=== PATIENT | male | born 1935 | race Caucasian/White ===

== ENCOUNTER → 2018-08-23 | Outpatient (CLI) | payer MEDICARE, OTHER | LOC: WOUNDCARE 08:39 | PROVIDERS: ATTEND Surgery | DX: I87.333 Chronic venous hypertension (idiopathic) with ulcer and inflammation of bilateral lower extremity (principal); I70.291 Other atherosclerosis of native arteries of extremities, right leg | CPT/HCPCS: 99203 ==

== ENCOUNTER → 2018-08-28 | Outpatient (CLI) | payer MEDICARE, OTHER | LOC: WOUNDCARE 09:43 | PROVIDERS: ATTEND Surgery | DX: R21 Rash and other nonspecific skin eruption (principal) | CPT/HCPCS: 99212 ==

== ENCOUNTER 2021-05-15 08:57 | Emergency (ER) | payer MEDICARE, OTHER ==
[~2021-05-15] VITALS: Ht 177 cm; Wt 84.0 kg
[2021-05-15 09:10] LABS: BASOPHILS % (AUTO) 1 % (0-10); EOSINOPHILS # (AUTO) 0.2 10^3/uL (0.0-0.3); EOSINOPHILS % (AUTO) 3 % (0-10); HEMATOCRIT 41 % (40-54); HEMOGLOBIN 14.1 g/dL (13.3-17.7); LYMPHOCYTES % (AUTO) 25 % (12-44); MEAN CORPUSCULAR HEMOGLOBIN 33 pg (25-34); MEAN CORPUSCULAR HGB CONC 34 g/dL (32-36); MEAN CORPUSCULAR VOLUME 96 fL (80-99); MEAN PLATELET VOLUME 9.5 fL (9.0-12.2); MONOCYTES # (AUTO) 0.9 X 10^3 (0.0-1.0); MONOCYTES % (AUTO) 12 % (0-12); NEUTROPHILS # (AUTO) 4.6 X 10^3 (1.8-7.8); NEUTROPHILS % (AUTO) 59 % (42-75); PLATELET COUNT 208 10^3/uL (130-400); WHITE BLOOD COUNT 7.8 10^3/uL (4.3-11.0)
--- NOTE | 2021-05-15 09:10 | ED Syncope ---
General Chief Complaint: Dizziness/Syncope Stated Complaint: SYNCOPAL EPISODE Source of Information: Patient, EMS, Spouse History of Present Illness Date Seen by Provider: May 15, 2021 Time Seen by Provider: 08:57 Initial Comments 85-year-old male presenting to the hospital with complaints of syncopal episode at [employer] this morning. Patient has a history of dementia and is difficult to get details of the event from him. He states that he had walked up the stairs, discharged and was doing fine but then he was sitting down and passed out. He denies having any headache, chest pain, abdominal pain, nausea, vomiting, feeling dizzy, change in vision. He reports feeling fine and not having any difficulty prior to passing out. He denies having this happen before for him. [facility] Per the he has done this in the past when he has been standing he has just passed out. He thought it was due to being dehydrated and having a low blood pressure. That has not happened since the summer when he was going for haircut at the [facility] in [place]. Location Injury Occurred: [facility] Precipitating Factors: None Loss of Consciousness: Brief (Seconds) Current Symptoms: Back to Normal Allergies and Home Medications Allergies Coded Allergies: No Known Drug Allergies (Unverified , 05/15/21) Patient Home Medication List Home Medication List Reviewed: Yes Review of Systems Constitutional: No chills, No diaphoresis, No fever EENTM: no symptoms reported Respiratory: no symptoms reported Cardiovascular: no symptoms reported Gastrointestinal: no symptoms reported Genitourinary: no symptoms reported Musculoskeletal: no symptoms reported Skin: no symptoms reported Psychiatric/Neurological: Denies Headache, Denies Numbness, Denies Paresthesia Past Sscepol-Wzqzxb-Ymnrki Hx Patient Social History Tobacco Use?: No Past Medical History Surgery/Hospitalization HX: Dementia, Hypertension Physical Exam Vital Signs Vital Signs - First Documented 05/15/21 08:57 Temp 35.7 Pulse 63 Resp 18 B/P (MAP) 157/80 (105) Pulse Ox 96 O2 Delivery Room Air Capillary Refill : Height, Weight, BMI Height: '" Weight: lbs. oz. kg; BMI Method: General Appearance: No Apparent Distress, WD/WN HEENT: PERRL/EOMI, Pharynx Normal, Moist Mucous Membranes Neck: Full Range of Motion, Normal Inspection, Non Tender, Supple Cardiovascular: Regular Rate, Rhythm, Normal Peripheral Pulses Respiratory: Chest Non Tender, Lungs Clear, Normal Breath Sounds, No Accessory Muscle Use, No Respiratory Distress Gastrointestinal: Normal Bowel Sounds, No Pulsatile Mass, Non Tender, Soft Extremities: Normal Capillary Refill, Normal Inspection, No Pedal Edema Neurologic/Psychiatric: Alert Cranial Nerves: Normal Hearing, Normal Speech, PERRL Motor/Sensory: No Motor Deficit, No Sensory Deficit Skin: Normal Color, Warm/Dry Progress/Results/Core Measures Results/Orders Lab Results Laboratory Tests Test 05/15/21 09:00 05/15/21 10:25 Range/Units White Blood Count 7.8 4.3-11.0 10^3/uL Red Blood Count 4.28 L 4.30-5.52 10^6/uL Hemoglobin 14.1 13.3-17.7 g/dL Hematocrit 41 40-54 % Mean Corpuscular Volume 96 80-99 fL Mean Corpuscular Hemoglobin 33 25-34 pg Mean Corpuscular Hemoglobin Concent 34 32-36 g/dL Red Cell Distribution Width 13.0 10.0-14.5 % Platelet Count 208 130-400 10^3/uL Mean Platelet Volume 9.5 9.0-12.2 fL Immature Granulocyte % (Auto) 0 % Neutrophils (%) (Auto) 59 42-75 % Lymphocytes (%) (Auto) 25 12-44 % Monocytes (%) (Auto) 12 0-12 % Eosinophils (%) (Auto) 3 0-10 % Basophils (%) (Auto) 1 0-10 % Neutrophils # (Auto) 4.6 1.8-7.8 X 10^3 Lymphocytes # (Auto) 2.0 1.0-4.0 X 10^3 Monocytes # (Auto) 0.9 0.0-1.0 X 10^3 Eosinophils # (Auto) 0.2 0.0-0.3 10^3/uL Basophils # (Auto) 0.0 0.0-0.1 10^3/uL Immature Granulocyte # (Auto) 0.0 0.0-0.1 10^3/uL Prothrombin Time 13.8 12.2-14.7 SEC INR Comment 1.0 0.8-1.4 Activated Partial Thromboplast Time 28 24-35 SEC Sodium Level 138 135-145 MMOL/L Potassium Level 3.5 L 3.6-5.0 MMOL/L Chloride Level 102 98-107 MMOL/L Carbon Dioxide Level 26 21-32 MMOL/L Anion Gap 10 5-14 MMOL/L Blood Urea Nitrogen 13 7-18 MG/DL Creatinine 1.03 0.60-1.30 MG/DL Estimat Glomerular Filtration Rate 69 BUN/Creatinine Ratio 13 Glucose Level 95 70-105 MG/DL Calcium Level 8.8 8.5-10.1 MG/DL Corrected Calcium 9.0 8.5-10.1 MG/DL Magnesium Level 1.9 1.6-2.4 MG/DL Total Bilirubin 0.5 0.1-1.0 MG/DL Aspartate Amino Transf (AST/SGOT) 16 5-34 U/L Alanine Aminotransferase (ALT/SGPT) 12 0-55 U/L Alkaline Phosphatase 89 40-136 U/L Troponin I < 0.30 <0.30 NG/ML Pro-B-Type Natriuretic Peptide 323.8 H <75.0 PG/ML Total Protein 6.5 6.4-8.2 GM/DL Albumin 3.7 3.2-4.5 GM/DL Urine Color YELLOW Urine Clarity CLEAR Urine pH 6.5 5-9 Urine Specific [place] 1.015 L 1.016-1.022 Urine Protein NEGATIVE NEGATIVE Urine Glucose (UA) NEGATIVE NEGATIVE Urine Ketones NEGATIVE NEGATIVE Urine Nitrite NEGATIVE NEGATIVE Urine Bilirubin NEGATIVE NEGATIVE Urine Urobilinogen 0.2 < = 1.0 MG/DL Urine Leukocyte Esterase NEGATIVE NEGATIVE Urine RBC (Auto) NEGATIVE NEGATIVE Urine RBC NONE /HPF Urine WBC RARE /HPF Urine Squamous Epithelial Cells 5-10 /HPF Urine Crystals NONE /LPF Urine Bacteria TRACE /HPF Urine Casts NONE /LPF Urine Mucus NEGATIVE /LPF Urine Culture Indicated NO My Orders Orders - JOHNNIE HECK MD Cbc With Automated Diff (05/15/21 09:03) Magnesium (05/15/21 09:03) Chest 1 View Ap/Pa Only (05/15/21 09:03) Ekg Tracing (05/15/21 09:03) Comprehensive Metabolic Panel (05/15/21 09:03) Protime With Inr (05/15/21 09:03) Partial Thromboplastin Time (05/15/21 09:03) O2 (05/15/21 09:03) Monitor-Rhythm Ecg Trace Only (05/15/21 09:03) Ed Iv/Invasive Line Start (05/15/21 09:03) Troponin I Fs (05/15/21 09:03) Probnp Fs (05/15/21 09:03) Ua Culture If Indicated (05/15/21 09:03) Ct Head Wo (05/15/21 09:03) Orthostatic Vital Signs (Adult (05/15/21 09:34) Vital Signs/I&O 05/15/21 05/15/21 05/15/21 08:57 09:42 10:52 Temp 35.7 35.7 Pulse 63 54 65 58 65 Resp 18 18 B/P (MAP) 157/80 (105) 145/73 (97) 147/92 142/68 (92) 147/92 (110) Pulse Ox 96 96 O2 Delivery Room Air Room Air Progress Progress Note #1: Progress Note Obtain basic labs as well as urinalysis. CT of his head to look for acute intracranial abnormality, stroke, mass, tumor. Chest x-ray to evaluate for pneumonia, effusion, cardiac or pulmonary abnormality. Electrocardiogram to evaluate for cardiac arrhythmia. Placed on cardiac telemetry monitoring and to watch his heart rate and rhythm. Give IV fluids for hydration. Will finish the liter of normal saline from EMS. Obtain orthostatic vital signs Progress Note #2: Progress Note Labs all appear stable without acute significant normality. His cardiac enzymes are negative for acute coronary syndrome or heart attack. His CT head does not show any acute process but does show changes consistent with age and dementia. His chest x-ray was clear without acute process. His electrocardiogram shows sinus rhythm without ectopy or ischemia. After a liter of fluid the patient was finally able to give a very small amount of urine. Progress Note #3: Progress Note UA clear of infection but his specific gravity was a little elevated still at 1.015 despite having just had a Liter of NS. Encouraged to drink more water and stay well-hydrated. Follow-up through the clinic for continued concerns. Initial ECG Impression Date: May 15, 2021 Initial ECG Impression Time: 09:27 Initial ECG Rate: 57 Initial ECG Rhythm: Normal Sinus Initial ECG Comparisson: No Previous ECG Available Comment Normal sinus rhythm with a heart rate of 57 bpm. Right bundle branch block. OR interval 169 ms. QT interval 461 ms with a QTc interval 449 ms. There is no acute ST elevation. There is no prior tracing available for comparison. Diagnostic Imaging Diagonstic Imaging: CT Plain Films/CT/US/NM/MRI: head Comments NAME: [facility] REC#: [id number] PT STATUS: REG ER : 1935 PHYSICIAN: JOHNNIE HECK MD ADMIT DATE: 05/15/21/ER FS Draft Date of Exam:05/15/21 CT HEAD WO PROCEDURE: CT head without contrast. TECHNIQUE: Multiple contiguous axial images were obtained through the brain without the use of intravenous contrast. Auto Exposure Controls were utilized during the CT exam to meet ALARA standards for radiation dose reduction. INDICATION: Syncopal episode. No prior studies are available for comparison. The ventricles and sulci are prominent consistent with cerebral atrophy. No sulcal effacement is seen. There is no midline shift. No acute intra-axial or extra-axial hemorrhage is detected. Cisterns are patent. Visualized paranasal sinuses are clear. IMPRESSION: Senescent changes. No acute intracranial process is identified. Dictated on workstation # [id number] Dict: 05/15/21939 Trans: 05/15/2144 [facility] [id number] Interpreted by: RENAE PELLETIER MD Electronically signed by: Reviewed: Reviewed by Az Diagonstic Imaging: Xray Plain Films/CT/US/NM/MRI: chest Comments [facility]. [place], [place] NAME: [facility] REC#: [id number] PT STATUS: REG ER : 1935 PHYSICIAN: JOHNNIE HECK MD ADMIT DATE: 05/15/21/ER FS Draft Date of Exam:05/15/21 CHEST 1 VIEW AP/PA ONLY Indication: Syncopal episode. TIME OF EXAM: 9:27 AM No prior studies available for comparison. A right convexity thoracic scoliotic curvature is noted. Heart size normal. Lungs are clear of acute infiltrates. There is no effusion or pneumothorax. There is some minimal scarring in the left base. IMPRESSION: No acute cardiopulmonary process is detected. Dictated on workstation # [id number] Dict: 05/15/2141 Trans: 05/15/2145 [facility] [id number] Interpreted by: RENAE PELLETIER MD Electronically signed by: Reviewed: Reviewed by Me Departure Impression Primary Impression: Vasovagal syncopes Additional Impression: Dehydration Disposition: 01 HOME, SELF-CARE Condition: Stable Departure-Patient Inst. Decision time for Depature: 10:51 Referrals: MAURI APARICIO MD (PCP) Primary Care Physician Patient Instructions: Fainting, Adult ED, Dehydration, Adult ED, Why Water Is Important to Health Add. Discharge Instructions: Make sure to drink more water and stay well-hydrated. Slowly change positions and take a moment to allow your body to adjust as you change positions. Check back with clinic for continued concerns or more problems. All discharge instructions reviewed with patient and/or family. Voiced understanding. JOHNNIE HECK MD May 15, 2021 09:10
[2021-05-15 09:29] LABS: BILIRUBIN,TOTAL 0.5 MG/DL (0.1-1.0); CALCIUM 8.8 MG/DL (8.5-10.1); CREATININE SERUM 1.03 MG/DL (0.60-1.30); MAGNESIUM 1.9 MG/DL (1.6-2.4); POTASSIUM 3.5 MMOL/L (3.6-5.0); PROTHROMBIN TIME PATIENT 13.8 SEC (12.2-14.7)
[2021-05-15 09:30] LABS: ALBUMIN 3.7 GM/DL (3.2-4.5); TOTAL PROTEIN 6.5 GM/DL (6.4-8.2)
[2021-05-15 09:42] VITALS: BP_SYST 142; BP_SYST 145; BP_SYST 147; BP_DIAS 68; BP_DIAS 73; BP_DIAS 92
--- NOTE | 2021-05-15 09:44 | Diagnostic Imaging Report ---
PROCEDURE: CT head without contrast. TECHNIQUE: Multiple contiguous axial images were obtained through the brain without the use of intravenous contrast. Auto Exposure Controls were utilized during the CT exam to meet ALARA standards for radiation dose reduction. INDICATION: Syncopal episode. No prior studies are available for comparison. The ventricles and sulci are prominent consistent with cerebral atrophy. No sulcal effacement is seen. There is no midline shift. No acute intra-axial or extra-axial hemorrhage is detected. Cisterns are patent. Visualized paranasal sinuses are clear. IMPRESSION: Senescent changes. No acute intracranial process is identified. Dictated by: Dictated on workstation # [id number]
--- NOTE | 2021-05-15 09:45 | Diagnostic Imaging Report ---
Indication: Syncopal episode. TIME OF EXAM: 9:27 AM No prior studies available for comparison. A right convexity thoracic scoliotic curvature is noted. Heart size normal. Lungs are clear of acute infiltrates. There is no effusion or pneumothorax. There is some minimal scarring in the left base. IMPRESSION: No acute cardiopulmonary process is detected. Dictated by: Dictated on workstation # [id number]
[2021-05-15 10:44] LABS: BACTERIA,URINE TRACE /HPF; BILIRUBIN,URINE NEGATIVE (NEGATIVE); CLARITY,URINE CLEAR; COLOR,URINE YELLOW; GLUCOSE, URINE (UA) NEGATIVE (NEGATIVE); KETONES,URINE NEGATIVE (NEGATIVE); LEUKOCYTE ESTERASE ,URINE NEGATIVE (NEGATIVE); NITRITE,URINE NEGATIVE (NEGATIVE); PH,URINE 6.5 (5-9); PROTEIN,URINE NEGATIVE (NEGATIVE); WBC,URINE RARE /HPF
[2021-05-15 10:52] VITALS: BP 147/92
== END 2021-05-15 10:53 | disposition home or self-care (01) ==
LOC: EDUNIT# 08:57 → ER FS 08:58
DX: R55 Syncope and collapse (principal); E86.0 Dehydration; I10 Essential (primary) hypertension; F03.90 Unspecified dementia, unspecified severity, without behavioral disturbance, psychotic disturbance, mood disturbance, and anxiety
CPT/HCPCS: 36415; 70450; 71045; 80053; 81000; 83735; 83880; 84484; 85025; 85610; 85730; 93005; 93041

== ENCOUNTER 2023-03-31 06:01 | Emergency (ER) | payer MEDICARE, OTHER ==
[~2023-03-31] VITALS: Ht 175 cm; Wt 80.0 kg
--- NOTE | 2023-03-31 06:29 | ED Fall/Injury ---
General Chief Complaint: Trauma-Non Activation Stated Complaint: FALL Nursing Triage Note: Patient to ER via [facility] c/o right & left shoulder and back pain. Patient fell trying to get to the bathroom this AM approx 10min prior to [facility] arrival. denies hitting head. hx of dementia. Source: patient, family Exam Limitations: other (Dementia) (BRADLEY YEN DO) History of Present Illness Date Seen by Provider: Mar 31, 2023 Time Seen by Provider: 06:15 Initial Comments This is an 87-year-old male with history of dementia who is brought by EMS secondary to a fall this morning. Patient is accompanied by his children and his showed up a little bit later. Patient reportedly was getting out of bed and fell. He reportedly did not strike his head, although I question this given the patient's age and physical stature. He complains of pain all the way up and down his spine and left shoulder pain and pain underneath the left should er as well. He has no shortness of breath. No medications were given prior to arrival. His pain is worse with movement or palpation. Location Injury Occurred: home (BRADLEY YEN DO) Allergies and Home Medications Allergies Coded Allergies: No Known Drug Allergies (Unverified , 05/15/21) Patient Home Medication List Home Medication List Reviewed: Yes (BRADLEY YEN DO) Review of Systems Review of Systems Constitutional: see HPI (All other systems negative except as documented in HPI.) (BRADLEY YEN DO) Past Uawcvse-Mbfukw-Katkac Hx Patient Social History Tobacco Use?: No Substance use?: No Alcohol Use?: No (BRADLEY YEN DO) Past Medical History Surgery/Hospitalization HX: Dementia, Hypertension (BRADLEY YEN DO) Physical Exam Vital Signs Vital Signs - First Documented 03/31/23 06:05 Temp 36.7 Pulse 94 Resp 16 B/P (MAP) 172/97 (122) Pulse Ox 90 O2 Delivery Room Air (ROGELIO ROJAS MD) Vital Signs Capillary Refill : Less Than 3 Seconds (BRADLEY YEN DO) Height, Weight, BMI Height: '" Weight: lbs. oz. kg; BMI Method: General Appearance: WD/WN, no apparent distress HEENT: PERRL/EOMI, normal ENT inspection, TMs normal, pharynx normal Neck: non-tender, full range of motion, supple, normal inspection Cardiovascular: normal peripheral pulses, regular rate, rhythm, no edema, no gallop, no JVD, no murmur Respiratory: chest non-tender, lungs clear, normal breath sounds, no respiratory distress, no accessory muscle use Peripheral Pulses: 0 Carotid (R); 2+ Carotid (R); 0 Carotid (L); 2+ Carotid (L); 0 Femoral (R); 2+ Femoral (R); 0 Femoral (L); 2+ Femoral (L); 0 Dorsalis Pedis (R); 2+ Dorsalis Pedis (R), 2+ Left Dors-Pedis (L), 2+ Radial Pulses (R), 2+ Radial Pulses (L) Gastrointestinal: normal bowel sounds, non tender, soft, no organomegaly, no pulsatile mass Rectal: normal exam, normal rectal tone, heme negative stool, deferred, black stool, blood streaked stool, decreased tone Pelvic: normal external exam, normal adnexa, no cerv. 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 Differential includes contusions versus fractures and would like to rule out intracranial hemorrhage. Will obtain imaging of the cer vical, thoracic, lumbar spines, x-ray left shoulder and left ribs, CT head. Patient currently stable and pain is controlled without movement. Patient care will be transitioned to Dr. Rojas at 0700. (YOVANA,BRADLEY T DO) Progress Note : Progress Note Patient signed out to me by night physician for follow-up of imaging. CT head and C-spine is normal without any fractures or dislocation. X-rays of shoulder and ribs are normal as well. Toradol injection given for pain in the ER. Advised Lidoderm patches and ibuprofen or Tylenol for pain as needed. Advised patient to use walker. Follow-up with PCP within the next 7 days. (ROGELIO ROJAS MD) Diagnostic Imaging Diagonstic Imaging: Xray, CT Plain Films/CT/US/NM/MRI: chest, c-spine, head, other Comments [facility] [place] NAME: [facility] RO[facility] REC#: [id number] PT STATUS: REG ER : 1935 PHYSICIAN: BRADLEY YEN DO ADMIT DATE: 03/31/23/ER FS Draft Date of Exam:03/31/23 CT THORACIC/LUMBAR SPINE WO PROCEDURE: CT thoracic and lumbar spine without contrast. TECHNIQUE: Multiple contiguous axial images were obtained through the thoracic and lumbar spine without the use of intravenous contrast. Sagittal and coronal reformations were then performed. All CT scans use one or more of the following dose optimizing techniques: automated exposure control, MA and/or KvP adjustment based on a patient size and exam type, or iterative reconstruction. INDICATION: Pain T-spine: There is rightward convexity thoracic scoliotic curvature. No segmentation anomaly or dysraphism. No fracture or paraspinal hemorrhage. The lumbar spine shows leftward convexity scoliotic curvature also idiopathic. There is mild L1 superior and inferior endplate concavity without lucent fracture component or paraspinal hemorrhage. This is likely chronic. There are severe degenerative changes greatest at L2-L3 and L3-L4 where there is chronic canal and biforaminal stenosis. No paraspinal hemorrhage. No traumatic malalignment. No acute appearing fracture line. Impression: Reciprocal thoracolumbar scoliosis, spondylosis, likely old mild L1 endplate compressions. No acute appearing fracture or paraspinal hemorrhage and no traumatic appearing malalignment. Dictated on workstation # [id number] Dict: 03/31/23 0738 Trans: 03/31/23 0803 [facility] [id number] Interpreted by: FLORENCE QUIROZ Electronically signed by: [facility]. [place], [place] NAME: EST[facility]PH[facility] RO[facility] REC#: [id number] PT STATUS: REG ER : 1935 PHYSICIAN: BRADLEY YEN DO ADMIT DATE: 03/31/23/ER FS Draft Date of Exam:03/31/23 CT HEAD/CERVICAL SPINE WO PROCEDURE: CT head and CT cervical spine without contrast. TECHNIQUE: Multiple contiguous axial images were obtained through the brain and cervical spine without the use of intravenous contrast. Sagittal and coronal reformations through the cervical spine were then performed. Auto Exposure Controls were utilized during the CT exam to meet ALARA standards for radiation dose reduction. INDICATION: Fall, pain. Compared with head CT 05/15/2021. Head: Cerebral cortical atrophy is chronic finding. No acute or suspicious extra-axial fluid collection. Ventricular calibers are congruent with the degree of sulcation. There is no teresa hydrocephalus. No calvarial fracture deformity. No hemo-sinus. No pneumocephalus. No cerebral edema. No evidence for elevated pressures. There has been no change. CT cervical spine: Cervical stature is normal. The alignment anatomic. No fracture. No paraspinal hemorrhage. There is some chronic degenerative changes with no acute appearing abnormality. IMPRESSION: CT head: Stable chronic senescent findings. No hemorrhage, fracture, edema or acute pathology. CT cervical spine: Degenerative changes without fracture or traumatic malalignment. Dictated on workstation # [id number] Dict: 03/31/23 0734 Trans: 03/31/[address] [place] [address] [id number] Interpreted by: FLORENCE QUIROZ Electronically signed by: [facility]. [place], [place] NAME: [facility] RO[facility] REC#: [id number] PT STATUS: REG ER : 1935 PHYSICIAN: BRADLEY YEN DO ADMIT DATE: 03/31/23/ER FS Draft Date of Exam:03/31/23 RIBS 2-3 VIEW LEFT INDICATION: Pain There is reciprocal S type thoracolumbar scoliotic curvature. Some left basilar infiltrate or atelectasis. No rib fracture deformity or acute injury identified. IMPRESSION: No rib fracture identified. Dictated on workstation # [id number] Dict: 03/31/23736 Trans: 03/31/23749 OMAR [id number] Interpreted by: FLORENCE QUIROZ Electronically signed by: [facility] [place] NAME: [facility] RO[facility] REC#: [id number] PT STATUS: REG ER : 1935 PHYSICIAN: BRADLEY YEN DO ADMIT DATE: 03/31/23/ER FS Draft Date of Exam:03/31/23 SHOULDER 2 VIEW LEFT INDICATION: Fall, pain FINDINGS: 2 view shoulder showed no fracture or dislocation. Impression: No acute appearing abnormality. Dictated on workstation # [id number] Dict: 03/31/2337 Trans: 03/31/23749 OMAR [id number] Interpreted by: FLORENCE QUIROZ Electronically signed by: (ROGELIO ROJAS MD) Transfer of Care Time: 07:00 Care transferred to: Dr. Rojas (BRADLEY YEN DO) Departure Impression Primary Impression: Fall Additional Impressions: Muscle strain Left shoulder strain Disposition: 01 HOME, SELF-CARE Condition: Stable Departure-Patient Inst. Referrals: MAURI APARICIO MD (PCP/Family) Primary Care Physician Patient Instructions: Preventing Falls ED, Shoulder Pain ED, Going Up and Down Curbs or Stairs With a Walker or Crutches, Muscle Strain (DC) Add. Discharge Instructions: Advised Lidoderm patches and ibuprofen or Tylenol for pain as needed. Advised patient to use walker. Follow-up with PCP within the next 7 days. All discharge instructions reviewed with patient and/or family. Voiced understanding. BRADLEY YEN DO Mar 31, 2023 06:29 ROGELIO ROJAS MD Mar 31, 2023 08:15
--- NOTE | 2023-03-31 07:51 | Diagnostic Imaging Report ---
INDICATION: Pain There is reciprocal S type thoracolumbar scoliotic curvature. Some left basilar infiltrate or atelectasis. No rib fracture deformity or acute injury identified. IMPRESSION: No rib fracture identified. Dictated by: Dictated on workstation # [id number]
--- NOTE | 2023-03-31 07:51 | Diagnostic Imaging Report ---
INDICATION: Fall, pain FINDINGS: 2 view shoulder showed no fracture or dislocation. Impression: No acute appearing abnormality. Dictated by: Dictated on workstation # [id number]
--- NOTE | 2023-03-31 08:04 | Diagnostic Imaging Report ---
PROCEDURE: CT head and CT cervical spine without contrast. TECHNIQUE: Multiple contiguous axial images were obtained through the brain and cervical spine without the use of intravenous contrast. Sagittal and coronal reformations through the cervical spine were then performed. Auto Exposure Controls were utilized during the CT exam to meet ALARA standards for radiation dose reduction. INDICATION: Fall, pain. Compared with head CT 05/15/2021. Head: Cerebral cortical atrophy is chronic finding. No acute or suspicious extra-axial fluid collection. Ventricular calibers are congruent with the degree of sulcation. There is no teresa hydrocephalus. No calvarial fracture deformity. No hemo-sinus. No pneumocephalus. No cerebral edema. No evidence for elevated pressures. There has been no change. CT cervical spine: Cervical stature is normal. The alignment anatomic. No fracture. No paraspinal hemorrhage. There is some chronic degenerative changes with no acute appearing abnormality. IMPRESSION: CT head: Stable chronic senescent findings. No hemorrhage, fracture, edema or acute pathology. CT cervical spine: Degenerative changes without fracture or traumatic malalignment. Dictated by: Dictated on workstation # [id number]
--- NOTE | 2023-03-31 08:04 | Diagnostic Imaging Report ---
PROCEDURE: CT thoracic and lumbar spine without contrast. TECHNIQUE: Multiple contiguous axial images were obtained through the thoracic and lumbar spine without the use of intravenous contrast. Sagittal and coronal reformations were then performed. All CT scans use one or more of the following dose optimizing techniques: automated exposure control, MA and/or KvP adjustment based on a patient size and exam type, or iterative reconstruction. INDICATION: Pain T-spine: There is rightward convexity thoracic scoliotic curvature. No segmentation anomaly or dysraphism. No fracture or paraspinal hemorrhage. The lumbar spine shows leftward convexity scoliotic curvature also idiopathic. There is mild L1 superior and inferior endplate concavity without lucent fracture component or paraspinal hemorrhage. This is likely chronic. There are severe degenerative changes greatest at L2-L3 and L3-L4 where there is chronic canal and biforaminal stenosis. No paraspinal hemorrhage. No traumatic malalignment. No acute appearing fracture line. Impression: Reciprocal thoracolumbar scoliosis, spondylosis, likely old mild L1 endplate compressions. No acute appearing fracture or paraspinal hemorrhage and no traumatic appearing malalignment. Dictated by: Dictated on workstation # [id number]
[2023-03-31] MEDS ORDERED: KETOROLAC INJ 30 MG/ML VIAL IM ONE (08:30)
[2023-03-31 08:35] VITALS: BP 172/97
[2023-03-31] MEDS ORDERED: KETOROLAC INJ 30 MG/ML VIAL ONE (08:37)
== END 2023-03-31 08:50 | disposition home or self-care (01) ==
LOC: EDUNIT# 06:01 → ER FS 06:02
DX: S46.912A Strain of unspecified muscle, fascia and tendon at shoulder and upper arm level, left arm, initial encounter (principal); W18.30XA Fall on same level, unspecified, initial encounter
CPT/HCPCS: 70450; 71100; 72125; 72128; 72131; 73030; 96372

== ENCOUNTER 2023-03-31 14:29 | Inpatient (IN) | payer MEDICARE, OTHER ==
[~2023-03-31] VITALS: Ht 175 cm; Wt 87.1 kg
--- NOTE | 2023-03-31 14:57 | ED General ---
General Chief Complaint: Trauma-Non Activation Stated Complaint: MULTIPLE INJURIES Nursing Triage Note: PT TO 02 VIA WHEELCHAIR CC OF FALL THIS AM AND WEEK AGO. PT UNABLE TO BEAR WEIGHT. Source of Information: Patient Exam Limitations: No Limitations History of Present Illness Date Seen by Provider: Mar 31, 2023 Time Seen by Provider: 14:42 Initial Comments Here with report of too weak to walk. Apparently had fall this morning and was seen at [facility] and had CT of the head, C-spine, thoracic spine, lumbar spine as well as left shoulder and left ribs. All of that apparently was okay. He was discharged from there but is unable to even stand up without two-person assistance and that is not normal for him. He is here with his and son. He lives with his who states that she is not inability care for him in this state and this is not his usual state. Does have history of dementia and is really only on a few medicines and mostly related to dementia. CT scan from [facility] ED results reviewed and shows no acute intracranial hemorrhage and no fractures acutely for any of the spine. Denies nausea, vomiting or diarrhea. Does complain of left arm pain and left upper back pain. Timing/Duration: 4-6 Hours Severity: Moderate Associated Systoms: No Chest Pain, No Fever/Chills, No Nausea/Vomiting, No Shortness of Air; Weakness Allergies and Home Medications Allergies Coded Allergies: No Known Drug Allergies (Unverified , 05/15/21) Patient Home Medication List Home Medication List Reviewed: Yes Review of Systems Review of Systems Constitutional: see HPI; No chills, No fever EENTM: No nose congestion, No throat pain Respiratory: No cough, No short of breath Cardiovascular: chest pain, edema Gastrointestinal: nausea, vomiting Genitourinary: no symptoms reported Musculoskeletal: No back pain; joint pain, muscle weakness Skin: no symptoms reported Psychiatric/Neurological: Weakness Past Qpydojo-Bldvhg-Dyeoro Hx Patient Social History Tobacco Use?: No Substance use?: No Alcohol Use?: No Pt feels they are or have been: No Past Medical History Surgery/Hospitalization HX: PINS IN FEET. DEMENTIA Cardiac: No Neurological: Yes Dementia Genitourinary: No Physical Exam Vital Signs Vital Signs - First Documented 03/31/23 14:37 Temp 37.8 Pulse 92 Resp 20 B/P (MAP) 167/94 (118) Pulse Ox 93 O2 Delivery Room Air Capillary Refill : Height, Weight, BMI Height: '" Weight: lbs. oz. kg; 26.00 BMI Method: General Appearance: No Apparent Distress, WD/WN HEENT: PERRL/EOMI, Pharynx Normal Neck: Non Tender, Supple Respiratory: Lungs Clear, Normal Breath Sounds Cardiovascular: Regular Rate, Rhythm, No Murmur Gastrointestinal: Non Tender, Soft Back: No CVA Tenderness, No Vertebral Tenderness, Other (Complains of left upper back pain and shoulder pain on palpation) Extremity: Pedal Edema (2+ bilateral up to the knee), Pelvis Stable, Other (Pain to the left shoulder) Skin: Normal Color, Warm/Dry Progress/Results/Core Measures Suspected Sepsis SIRS Temperature: Pulse: 92 Respiratory Rate: 20 Laboratory Tests 03/31/23 14:53: White Blood Count 9.5 Blood Pressure 167 /94 Mean: 118 Laboratory Tests 03/31/23 14:53: Creatinine 1.05, Platelet Count 181, Total Bilirubin 0.8 Results/Orders Lab Results Laboratory Tests Test 03/31/23 14:53 03/31/23 15:49 03/31/23 15:52 Range/Units White Blood Count 9.5 4.3-11.0 10^3/uL Red Blood Count 3.98 L 4.30-5.52 10^6/uL Hemoglobin 13.3 13.3-17.7 g/dL Hematocrit 39 L 40-54 % Mean Corpuscular Volume 98 80-99 fL Mean Corpuscular Hemoglobin 33 25-34 pg Mean Corpuscular Hemoglobin Concent 34 32-36 g/dL Red Cell Distribution Width 12.5 10.0-14.5 % Platelet Count 181 130-400 10^3/uL Mean Platelet Volume 9.4 9.0-12.2 fL Immature Granulocyte % (Auto) 1 % Neutrophils (%) (Auto) 84 H 42-75 % Lymphocytes (%) (Auto) 6 L 12-44 % Monocytes (%) (Auto) 9 0-12 % Eosinophils (%) (Auto) 0 0-10 % Basophils (%) (Auto) 0 0-10 % Neutrophils # (Auto) 7.9 H 1.8-7.8 10^3/uL Lymphocytes # (Auto) 0.6 L 1.0-4.0 10^3/uL Monocytes # (Auto) 0.8 0.0-1.0 10^3/uL Eosinophils # (Auto) 0.0 0.0-0.3 10^3/uL Basophils # (Auto) 0.0 0.0-0.1 10^3/uL Immature Granulocyte # (Auto) 0.1 0.0-0.1 10^3/uL Neutrophils % (Manual) 85 % Lymphocytes % (Manual) 10 % Monocytes % (Manual) 5 % Blood Morphology Comment NORMAL Sodium Level 134 L 135-145 MMOL/L Potassium Level 3.6 3.6-5.0 MMOL/L Chloride Level 101 98-107 MMOL/L Carbon Dioxide Level 19 L 21-32 MMOL/L Anion Gap 14 5-14 MMOL/L Blood Urea Nitrogen 11 7-18 MG/DL Creatinine 1.05 0.60-1.30 MG/DL Estimat Glomerular Filtration Rate 69 BUN/Creatinine Ratio 10 Glucose Level 168 H 70-105 MG/DL Calcium Level 8.5 8.5-10.1 MG/DL Corrected Calcium 8.9 8.5-10.1 MG/DL Magnesium Level 1.9 1.6-2.4 MG/DL Total Bilirubin 0.8 0.1-1.0 MG/DL Aspartate Amino Transf (AST/SGOT) 30 5-34 U/L Alanine Aminotransferase (ALT/SGPT) 22 0-55 U/L Alkaline Phosphatase 85 40-136 U/L Troponin I < 0.028 <0.028 NG/ML C-Reactive Protein High Sensitivity 2.24 H 0.00-0.50 MG/DL B-Type Natriuretic Peptide 63.3 <100.0 PG/ML Total Protein 6.2 L 6.4-8.2 GM/DL Albumin 3.5 3.2-4.5 GM/DL Influenza Type A (RT-PCR) Not Detected Not Detecte Influenza Type B (RT-PCR) Not Detected Not Detecte SARS-CoV-2 RNA (RT-PCR) Not Detected Not Detecte Urine Color YELLOW Urine Clarity CLEAR Urine pH 5.5 5-9 Urine Specific [place] 1.015 L 1.016-1.022 Urine Protein 1+ H NEGATIVE Urine Glucose (UA) NEGATIVE NEGATIVE Urine Ketones TRACE H NEGATIVE Urine Nitrite NEGATIVE NEGATIVE Urine Bilirubin 1+ H NEGATIVE Urine Urobilinogen 0.2 < = 1.0 MG/DL Urine Leukocyte Esterase NEGATIVE NEGATIVE Urine RBC (Auto) TRACE H NEGATIVE Urine RBC 2-5 H /HPF Urine WBC 0-2 /HPF Urine Squamous Epithelial Cells RARE /HPF Urine Crystals NONE /LPF Urine Bacteria TRACE /HPF Urine Casts PRESENT /LPF Urine Hyaline Casts 2-5 H /LPF Urine Mucus NEGATIVE /LPF Urine Culture Indicated NO My Orders Orders - EVANGELIST LAWRENCE MD Ed Iv/Invasive Line Start (03/31/23 14:48) Ekg Tracing (03/31/23 14:48) Monitor-Rhythm Ecg Trace Only (03/31/23 14:48) Cbc And Automated Diff (03/31/23 14:48) Comprehensive Metabolic Panel (03/31/23 14:48) Hs C Reactive Protein (03/31/23 14:48) Magnesium (03/31/23 14:48) Troponin I Roberto (03/31/23 14:48) Ua Culture If Indicated (03/31/23 14:48) Ns Iv 500 Ml (Ns Iv 500 Ml) (03/31/23 15:00) Chest 1 View, Ap/Pa Only (03/31/23 14:51) Bnp [place] (03/31/23 15:00) Manual Differential (03/31/23 14:53) Influenza A And B By Pcr (03/31/23 15:47) Covid 19 Inhouse Test (03/31/23 15:47) Fentanyl Injection (Fentanyl Injection (03/31/23 15:58) Medications Given in ED Current Medications Medications Dose Ordered Sig/Melisa Route Start Time Stop Time Status Last Admin Dose Admin Sodium Chloride 500 ml @ 0 mls/hr Q0M ONCE IV 03/31/23 15:00 03/31/23 15:01 DC 03/31/23 15:01 999 MLS/HR Vital Signs/I&O 03/31/23 14:37 Temp 37.8 Pulse 92 Resp 20 B/P (MAP) 167/94 (118) Pulse Ox 93 O2 Delivery Room Air Capillary Refill : Blood Pressure Mean: 118 Progress Note : Progress Note Seen and evaluated. IV, labs including CBC, CMP, CRP, troponin and BNP ordered. We will get chest x-ray and EKG. I did review CT and x-ray results from [facility] done earlier today. We will give normal saline 500 mL bolus. Monitor patient. Differential diagnosis includes cardiac event, blood dyscrasia, electrolyte abnormality, dehydration, advancing dementia 1558: I have ordered fentanyl 25 mcg IV for pain and we have added COVID-19 test as well as influenza. Labs reviewed and CBC shows normal white count with normal hemoglobin without left shift. CMP shows grossly normal electrolytes with slightly elevated glucose and negative troponin. CRP is minimally elevated at 2.24 with BNP being normal. UA shows 1+ protein and 2-5 RBCs and 0-2 whites with trace bacteria and rare squames. 1645: COVID and influenza are negative. I have discussed the case with the family medicine chair on-call, Dr. Hinton, and discussed the current case. Patient is very weak on standing and unable to really support himself well. He lives at home along with his who is very concerned about his ability to function at home. Patient does have dementia. He has had a few falls there is the persistent weakness. This may be medication related, dehydration or sequela of his advancing age. Ultimately we have decided for admission, observation status with consideration for inpatient rehab. I did discuss with the family that he would not be able to stay persistently for weakness and that if he did not qualify for inpatient rehab and over did not get better that there would be consideration for retirement placement which is the family was okay with. Patient has requested DNR status which was ordered. Admit, observation status. Patient and family agree to plan. Diagnostic Imaging Diagonstic Imaging: Xray Plain Films/CT/US/NM/MRI: chest Comments [facility]. [place], [place] NAME: ESTEPHANIA RO[facility] REC#: [id number] PT STATUS: REG ER : 1935 PHYSICIAN: EVANGELIST LAWRENCE MD ADMIT DATE: 03/31/23/ER Draft Date of Exam:03/31/23 CHEST 1 VIEW, AP/PA ONLY INDICATION: Weakness. COMPARISON: 05/15/2021. FINDINGS: Cardiac silhouette is enlarged. There is obscuration of left hemidiaphragm which may reflect left base atelectasis or pneumonia. Small left effusion cannot be excluded. Right lung appears clear. There is no pneumothorax. IMPRESSION: 1. Obscuration left hemidiaphragm suggesting left basilar atelectasis or pneumonia with possible left effusion. The right lung appears clear. 2. Enlarged cardiac silhouette without current radiographic evidence of edema or failure. Dictated on workstation # [id number] Dict: 03/31/23 1553 Trans: 03/31/23 1558 [id number] Interpreted by: GLENN MAO MD Electronically signed by: Departure Communication (Admissions) Time/Spoke to Admitting Phy: 16:45 Impression Primary Impression: Recurrent falls Additional Impressions: Generalized weakness Dementia Qualified Codes: F03.B0 - Unspecified dementia, moderate, without behavioral disturbance, psychotic disturbance, mood disturbance, and anxiety Disposition: ADMITTED INPATIENT Condition: Stable Admissions Decision to Admit Reason: Admit from ER (General) Decision to Admit/Date: Mar 31, 2023 Time/Decision to Admit Time: 16:45 Departure-Patient Inst. Referrals: MAURI APARICIO MD (PCP/Family) Primary Care Physician EVANGELIST LAWRENCE MD Mar 31, 2023 14:57
[2023-03-31] MEDS ORDERED: NS IV 500 ML 500 ML IV ONE (15:00)
[2023-03-31 15:01] LABS: BASOPHILS % (AUTO) 0 % (0-10); EOSINOPHILS % (AUTO) 0 % (0-10); HEMATOCRIT 39 % (40-54); HEMOGLOBIN 13.3 g/dL (13.3-17.7); LYMPHOCYTES # (AUTO) 0.6 10^3/uL (1.0-4.0); LYMPHOCYTES % (AUTO) 6 % (12-44); MEAN CORPUSCULAR HEMOGLOBIN 33 pg (25-34); MEAN CORPUSCULAR HGB CONC 34 g/dL (32-36); MEAN CORPUSCULAR VOLUME 98 fL (80-99); MEAN PLATELET VOLUME 9.4 fL (9.0-12.2); MONOCYTES # (AUTO) 0.8 10^3/uL (0.0-1.0); MONOCYTES % (AUTO) 9 % (0-12); NEUTROPHILS # (AUTO) 7.9 10^3/uL (1.8-7.8); NEUTROPHILS % (AUTO) 84 % (42-75); PLATELET COUNT 181 10^3/uL (130-400); WHITE BLOOD COUNT 9.5 10^3/uL (4.3-11.0)
[2023-03-31 15:10] LABS: ALBUMIN 3.5 GM/DL (3.2-4.5); CHLORIDE 101 MMOL/L (98-107); POTASSIUM 3.6 MMOL/L (3.6-5.0); SODIUM 134 MMOL/L (135-145)
[2023-03-31 15:11] LABS: CALCIUM 8.5 MG/DL (8.5-10.1)
[2023-03-31 15:12] LABS: GLUCOSE 168 MG/DL (70-105)
[2023-03-31 15:13] LABS: TOTAL PROTEIN 6.2 GM/DL (6.4-8.2)
[2023-03-31 15:14] LABS: BILIRUBIN,TOTAL 0.8 MG/DL (0.1-1.0); CARBON DIOXIDE 19 MMOL/L (21-32)
[2023-03-31 15:16] LABS: ALKALINE PHOSPHATASE 85 U/L (40-136); CREATININE SERUM 1.05 MG/DL (0.60-1.30); GFR ESTIMATED 69
[2023-03-31 15:17] LABS: BUN/CREATININE RATIO 10
[2023-03-31 15:19] LABS: ALANINE AMINOTRANSFERASE 22 U/L (0-55); MAGNESIUM 1.9 MG/DL (1.6-2.4)
[2023-03-31 15:35] LABS: LYMPHOCYTES % (MANUAL) 10 %; MONOCYTES % (MANUAL) 5 %; NEUTROPHILS % (MANUAL) 85 %; RBC MORPH NORMAL
[2023-03-31] MEDS ORDERED: fentaNYL INJECTION 100 MCG/2 ML VIAL IVP STA (15:58)
--- NOTE | 2023-03-31 15:58 | Diagnostic Imaging Report ---
INDICATION: Weakness. COMPARISON: 05/15/2021. FINDINGS: Cardiac silhouette is enlarged. There is obscuration of left hemidiaphragm which may reflect left base atelectasis or pneumonia. Small left effusion cannot be excluded. Right lung appears clear. There is no pneumothorax. IMPRESSION: 1. Obscuration left hemidiaphragm suggesting left basilar atelectasis or pneumonia with possible left effusion. The right lung appears clear. 2. Enlarged cardiac silhouette without current radiographic evidence of edema or failure. Dictated by: Dictated on workstation # [id number]
[2023-03-31 16:08] LABS: CLARITY,URINE CLEAR; COLOR,URINE YELLOW; PH,URINE 5.5 (5-9)
[2023-03-31 16:09] LABS: BACTERIA,URINE TRACE /HPF; BILIRUBIN,URINE 1+ (NEGATIVE); GLUCOSE, URINE (UA) NEGATIVE (NEGATIVE); KETONES,URINE TRACE (NEGATIVE); LEUKOCYTE ESTERASE ,URINE NEGATIVE (NEGATIVE); NITRITE,URINE NEGATIVE (NEGATIVE); PROTEIN,URINE 1+ (NEGATIVE); SQUAMOUS EPITHELIAL CELL,UR RARE /HPF; WBC,URINE 0-2 /HPF
--- NOTE | 2023-03-31 17:01 | History & Physical-Hospitalist ---
LILIANA CANTRELL MD, RESIDENT 03/31/23 1701: History of Present Illness HPI/Chief Complaint CC: Generalized weakness Patient is an 87-year-old male with a past medical history of dementia who presented after a fall. He lives with his at home who states that he fell getting out of bed this morning and had difficulty pulling himself back up. He was thus brought into [place] ED via EMS where multiple CT scans were done all of which were negative for any injuries. She does note that he had a similar fall 2 weeks ago with negative imaging as well. Today after being discharged from [place] ED, she noted that patient was unable to walk. The ED physician here in [place] stated that patient had to be lifted out of the car. Patient is otherwise usually to able to walk without any assistance at baseline. Given that he is unable to be taken care of at home in this condition, he will be brought in for PT/OT evaluation. Source: patient Exam Limitations: no limitations Date Seen 03/31/23 Time Seen by a Provider: 03:45 Attending Physician Richardson Guerra MD PCP Admitting Physician: Attending Physician: Referring Physician Date of Admission Home Medications & Allergies Home Medications Reviewed patient Home Medication Reconciliation performed by pharmacy medication reconciliations cad technician and/or nursing. Patients Allergies have been reviewed. Allergies Allergies Coded Allergies No Known Drug Allergies (Oknuoytdgk99/19/21) Past Vjecurf-Czwrsk-Snakap Hx Patient Social History Tobacco Use?: No Substance use?: No Alcohol Use?: No Pt feels they are or have been: No Current Status Communicates: Verbally Primary Language: [place]de[place] Preferred Spoken Language: [place]dean Is interpretation needed?: No Sensory deficits: Vision impairment Past Medical History Dementia Review of Systems Constitutional: No dizziness, No fever; weakness EENTM: No no symptoms reported Respiratory: No cough, No dyspnea on exertion, No short of breath Cardiovascular: No chest pain, No edema, No palpitations Gastrointestinal: No abdominal pain, No constipation, No diarrhea, No nausea, No vomiting Genitourinary: No dysuria Musculoskeletal: other (Left upper back pain) Skin: No no symptoms reported Psychiatric/Neurological: Denies No Symptoms Reported Physical Exam Physical Exam Vital Signs Vital Signs - First Documented 03/31/23 14:37 Temp 37.8 Pulse 92 Resp 20 B/P (MAP) 167/94 (118) Pulse Ox 93 O2 Delivery Room Air Capillary Refill : Height, Weight, BMI Height: '" Weight: lbs. oz. kg; 26.00 BMI Method: General Appearance: No Apparent Distress Neck: Full Range of Motion, Normal Inspection Respiratory: Lungs Clear, Normal Breath Sounds, No Accessory Muscle Use, No Respiratory Distress, Other (Chest tender to palpation on the left side) Cardiovascular: Regular Rate, Rhythm, No Edema, No Murmur Gastrointestinal: Normal Bowel Sounds, Non Tender, Soft Extremity: No Pedal Edema Neurologic/Psychiatric: Alert, Oriented x3 Skin: Normal Color, Warm/Dry Results Results/Procedures Labs Laboratory Tests 03/31/23 14:53 Patient resulted labs reviewed. Imaging: Reviewed Imaging Films, Reviewed Imaging Report Imaging Chest x-ray (02/28/2023) IMPRESSION: 1. Obscuration left hemidiaphragm suggesting left basilar atelectasis or pneumonia with possible left effusion. The right lung appears clear. 2. Enlarged cardiac silhouette without current radiographic evidence of edema or failure. Assessment/Plan Admission Diagnosis Recurrent falls Admission Status: Observation Diagnosis/Problems Diagnosis/Problems (1) Recurrent falls Status: Acute Assessment & Plan: Patient presenting with recurrent falls. Imaging is negative for any acute injuries. No signs of infection as patient's vital signs are stable, no leukocytosis, UA is negative. Chest x-ray questionable for left lobe pneumonia however given patient's clinical presentation, unlikely to be pneumonia related. Elevated CRP does support a possible viral picture however will hold off on antibiotics at this time. Plan: Consulting PT/OT, appreciate recommendations Pain medications as needed given that patient has likely sustained some injuries due to this. (2) Generalized weakness Status: Acute Assessment & Plan: See above (3) Dementia Status: Chronic Assessment & Plan: May be contributing to patient's falls. We will restart home medications once med rec has been completed. Qualifiers: Dementia type: unspecified type Dementia severity: moderate Dementia behavioral or psychological symptom: unspecified whether behavioral, psychotic, or mood disturbance or anxiety Qualified Codes: F03.B0 - Unspecified dementia, moderate, without behavioral disturbance, psychotic disturbance, mood disturbance, and anxiety (4) Hyponatremia Status: Acute Assessment & Plan: Mildly hyponatremic to 134. Encourage oral intake. (5) Left shoulder pain Status: Acute Assessment & Plan: Manage per above. Qualifiers: Chronicity: acute Qualified Codes: M25.512 - Pain in left shoulder MEGHNA LINARES DO 04/01/23 1516: History of Present Illness HPI/Chief Complaint Chief complaint: Generalized weakness with confusion HPI: This is an 87-year-old male clinic patient of [facility] who presented with weakness and confusion with history of dementia. Currently he is upright in a chair and daughter and son are at the bedside. He did require Crawford catheter placement due to urinary retention. Hypokalemia will be supplemented. Due to significant delirium and confusion and immobile state he will need to be placed in inpatient status. Hypertension will be managed. Source: patient, family, RN/MD Exam Limitations: clinical condition Past [place]m-[place]uru-Pyawpn Hx Patient Social History Marrital Status: Employed/Student: retired Smoking Status: Unknown if Ever Smoked Past Medical History Dementia Review of Systems Constitutional: see HPI, weakness Psychiatric/Neurological: Other (Confusion) Physical Exam Physical Exam General Appearance: No Apparent Distress, Chronically ill, Other ( confused) Respiratory: Lungs Clear, Normal Breath Sounds Cardiovascular: Regular Rate, Rhythm Neurologic/Psychiatric: Alert, Depressed Affect, Disoriented, Motor Weakness ( generalized) Assessment/Plan Admission Diagnosis Assessment: Delirium Weakness Falls Dementia Hypertension Hypokalemia Plan: Supplement potassium Blood pressure medication added PT and OT Needs care home placement Admission Status: Inpatient Order (span 2 midnights) Reason for Inpatient Admission: Patient with severe delirium and unable to ambulate will require 3 midnights then placement in alf LILIANA CANTRELL MD, RESIDENT Mar 31, 2023 17:01 MEGHNA LINARES DO Apr 01, 2023 15:16
[2023-03-31] MEDS ORDERED: LACTULOSE SYRUP 10GM/15ML 30ML UDC PO PRN (17:45)
[2023-03-31] MEDS ORDERED: ONDANSETRON 4 MG ORAL DISSOLVE TABLET PO PRN (17:45)
[2023-03-31] MEDS ORDERED: MILK OF MAGNESIA 400 MG/5 ML 30 ML UDC PO PRN (17:45)
[2023-03-31] MEDS ORDERED: CALCIUM CARBONATE 500 MG CHEW TABLET PO PRN (17:45)
[2023-03-31] MEDS ORDERED: ACETAMINOPHEN 325 MG TABLET PO PRN (17:45)
[2023-03-31] MEDS ORDERED: BISACODYL 10 MG SUPPOSITORY PR PRN (17:45)
[2023-03-31] MEDS ORDERED: ONDANSETRON INJECTION 4 MG/2 ML (SDV) IV PRN (17:45)
[2023-03-31] MEDS ORDERED: MELATONIN 3 MG TABLET PO PRN (17:45)
[2023-03-31] MEDS ORDERED: NALOXONE 0.4 MG/ML 1 ML VIAL IV PRN (17:45)
[2023-03-31] MEDS ORDERED: morphine INJ 4 MG/ML 1 ML (VIAL/SYRINGE) IV PRN (17:45)
[2023-03-31] MEDS ORDERED: ANTACID SUSPENSION 30 ML UDC PO PRN (17:45)
[2023-03-31] MEDS ORDERED: diphenhydrAMINE INJ 50 MG/ML VIAL IVP PRN (17:45)
[2023-03-31] MEDS ORDERED: IBUPROFEN 600 MG TABLET PO ONE (18:34)
[2023-03-31] MEDS ORDERED: MELATONIN 10 MG TABLET ONE (18:36)
[2023-03-31] MEDS: IBUPROFEN 600 MG TABLET PO SCH ×2 (18:38→23:47)
[2023-03-31] MEDS: MELATONIN 10 MG TABLET PO SCH (18:41)
[2023-03-31 20:00] VITALS: BP 167/87
[2023-03-31] MEDS: busPIRone 10 MG TABLET PO SCH (21:33)
[2023-03-31] MEDS: ACETAMINOPHEN 500 MG TABLET PO SCH (21:34)
[2023-03-31] MEDS: MEMANTINE 5 MG TABLET PO SCH (21:36)
[2023-03-31] MEDS: ENOXAPARIN 40 MG/0.4 ML SYRINGE SC SCH (21:57)
[2023-03-31] MEDS: DOCUSATE SODIUM 100 MG CAPSULE PO SCH (21:59)
[2023-03-31] MEDS: SENNOSIDES 8.6 MG TABLET PO SCH (21:59)
[2023-04-01] VITALS (7 sets, daily range): BP systolic 115–176; BP diastolic 71–99
[2023-04-01] MEDS: diphenhydrAMINE 25 MG TABLET PO PRN (01:28)
--- NOTE | 2023-04-01 05:57 | Progress Note - Hospitalist ---
Subjective HPI/CC On Admission Date Seen by Provider: Apr 01, 2023 Time Seen by Provider: 11:00 CC: Generalized weakness Patient is an 87-year-old male with a past medical history of dementia who presented after a fall. He lives with his at home who states that he fell getting out of bed this morning and had difficulty pulling himself back up. He was thus brought into [place] ED via EMS where multiple CT scans were done all of which were negative for any injuries. She does note that he had a similar fall 2 weeks ago with negative imaging as well. Today after being discharged from [facility] ED, she noted that patient was unable to walk. The ED physician here in [place] stated that patient had to be lifted out of the car. Patient is otherwise usually to able to walk without any assistance at [facility]. Given that he is unable to be taken care of at home in this condition, he will be brought in for PT/OT evaluation. Subjective/Events-last exam Patient still confused Family at the bedside Updated them on delirium We will replace potassium Blood pressure still high Crawford catheter placed due to retention Review of Systems General: Fatigue Neurological: Confusion Objective Exam Vital Signs Vital Signs Date Time Temp Pulse Resp B/P (MAP) Pulse Ox O2 Delivery O2 Flow Rate FiO2 04/01/23 12:24 36.8 77 16 115/74 (88) 93 Room Air Capillary Refill : General Appearance: No Apparent Distress, WD/WN, Chronically ill Respiratory: Lungs Clear, Normal Breath Sounds Cardiovascular: Regular Rate, Rhythm Neurologic/Psychiatric: Alert, Disoriented Results/Procedures Lab Laboratory Tests 04/01/23 05:30 Patient resulted labs reviewed. Imaging: Reviewed Imaging Films, Reviewed Imaging Report Assessment/Plan Assessment and Plan Assess & Plan/Chief Complaint (1) Recurrent falls Status: Acute Assessment & Plan: Patient presenting with recurrent falls. Imaging is negative for any acute injuries. No signs of infection as patient's vital signs are stable, no leukocytosis, UA is negative. Chest x-ray questionable for left lobe pneumonia however given patient's clinical presentation, unlikely to be pneumonia related. Elevated CRP does support a possible viral picture however will hold off on antibiotics at this time. Plan: Consulting PT/OT, appreciate recommendations Pain medications as needed given that patient has likely sustained some injuries due to this. (2) Generalized weakness Status: Acute Assessment & Plan: See above (3) Dementia Status: Chronic Assessment & Plan: May be contributing to patient's falls. We will restart home medications once med rec has been completed. (4) Hyponatremia Status: Acute Assessment & Plan: Mildly hyponatremic to 134. Encourage oral intake. (5) Left shoulder pain Status: Acute Assessment & Plan: Manage per above. Qualifiers: Chronicity: acute Qualified Codes: M25.512 - Pain in left shoulder MEGHNA LINARES DO Apr 01, 2023 05:57
[2023-04-01] MEDS: IBUPROFEN 600 MG TABLET PO SCH ×3 (06:20→17:42)
[2023-04-01] MEDS: ACETAMINOPHEN 500 MG TABLET PO SCH ×3 (06:20→21:23)
[2023-04-01 06:27] LABS: HEMATOCRIT 37 % (40-54); HEMOGLOBIN 12.6 g/dL (13.3-17.7); MEAN CORPUSCULAR HEMOGLOBIN 32 pg (25-34); MEAN CORPUSCULAR HGB CONC 34 g/dL (32-36); MEAN CORPUSCULAR VOLUME 95 fL (80-99); MEAN PLATELET VOLUME 9.5 fL (9.0-12.2); PLATELET COUNT 164 10^3/uL (130-400); WHITE BLOOD COUNT 6.5 10^3/uL (4.3-11.0)
[2023-04-01 06:41] LABS: ALBUMIN 3.2 GM/DL (3.2-4.5); POTASSIUM 3.2 MMOL/L (3.6-5.0)
[2023-04-01 06:42] LABS: CALCIUM 8.3 MG/DL (8.5-10.1)
[2023-04-01 06:43] LABS: TOTAL PROTEIN 5.8 GM/DL (6.4-8.2)
[2023-04-01 06:45] LABS: BILIRUBIN,TOTAL 0.9 MG/DL (0.1-1.0)
[2023-04-01 06:47] LABS: CREATININE SERUM 0.88 MG/DL (0.60-1.30)
[2023-04-01] MEDS: oxyCODONE IMMEDIATE RELEASE 5 MG TABLET PO PRN (08:22)
[2023-04-01] MEDS: busPIRone 10 MG TABLET PO SCH ×2 (08:22→21:22)
[2023-04-01] MEDS: MEMANTINE 5 MG TABLET PO SCH ×2 (08:22→21:22)
[2023-04-01] MEDS: SENNOSIDES 8.6 MG TABLET PO SCH ×2 (08:22→21:22)
[2023-04-01] MEDS: DOCUSATE SODIUM 100 MG CAPSULE PO SCH ×2 (08:22→21:23)
[2023-04-01] MEDS: DONEPEZIL 10 MG TABLET PO SCH (08:23)
[2023-04-01] MEDS ORDERED: amLODIPine 5 MG TABLET PO NR (10:00)
[2023-04-01] MEDS: POTASSIUM CHLORIDE 10 MEQ TABLET PO SCH ×2 (10:36→17:42)
[2023-04-01] MEDS: LORazepam 0.5 MG TABLET PO PRN (14:07)
[2023-04-01] MEDS: ENOXAPARIN 40 MG/0.4 ML SYRINGE SC SCH (17:42)
[2023-04-01] MEDS: MELATONIN 10 MG TABLET PO SCH (21:22)
[2023-04-02] MEDS: IBUPROFEN 600 MG TABLET PO SCH ×6 (00:04→23:19)
[2023-04-02] MEDS: diphenhydrAMINE 25 MG TABLET PO PRN (01:18)
[2023-04-02 03:51] VITALS: BP 156/83
[2023-04-02] MEDS: LORazepam 0.5 MG TABLET PO PRN (05:07)
[2023-04-02] MEDS: ACETAMINOPHEN 500 MG TABLET PO SCH ×3 (05:08→20:28)
[2023-04-02 05:45] LABS: HEMATOCRIT 35 % (40-54); MEAN CORPUSCULAR HEMOGLOBIN 32 pg (25-34); MEAN CORPUSCULAR HGB CONC 34 g/dL (32-36); MEAN CORPUSCULAR VOLUME 95 fL (80-99); MEAN PLATELET VOLUME 9.5 fL (9.0-12.2); PLATELET COUNT 150 10^3/uL (130-400); WHITE BLOOD COUNT 6.4 10^3/uL (4.3-11.0)
[2023-04-02 06:04] LABS: ALBUMIN 3.1 GM/DL (3.2-4.5); CALCIUM 8.3 MG/DL (8.5-10.1); CREATININE SERUM 0.99 MG/DL (0.60-1.30); POTASSIUM 3.2 MMOL/L (3.6-5.0); TOTAL PROTEIN 5.7 GM/DL (6.4-8.2)
[2023-04-02] MEDS ORDERED: POTASSIUM CHLORIDE 20 MEQ TABLET PO NR ×2 (07:00→09:00)
[2023-04-02 07:29] VITALS: BP 152/84
--- NOTE | 2023-04-02 08:30 | Progress Note ---
Subjective Subjective/Events-last exam Patient up to chair this morning, daughter and at bedside. States "I'm 87, I'm just dying". Reports doing okay overall, no new chest pain, shortness of breath, n/v/d. Planning to work with PT/OT today. concerned that he will not be strong enough to come home, would like to look at assisted in [facility]. Review of Systems General: No Chills, No Night Sweats; Fatigue HEENT: No Head Aches, No Sore Throat Pulmonary: No Dyspnea, No Cough Cardiovascular: No: Chest Pain, Palpitations, Edema Gastrointestinal: No: Nausea, Vomiting, Diarrhea, Constipation Genitourinary: Retention (sandoval in place) Musculoskeletal: back pain Objective Exam Last Set of Vital Signs Vital Signs Date Time Temp Pulse Resp B/P (MAP) Pulse Ox O2 Delivery O2 Flow Rate FiO2 04/02/23 07:29 36.4 69 16 152/84 (106) 92 Room Air Capillary Refill : I&O Intake and Output 04/02/23 00:00 Intake Total 1780 ml Output Total 2250 ml Balance -470 ml Intake Oral 1780 ml Output Urine Total 2250 ml # Bowel Movements 1 General: Alert, Cooperative, No Acute Distress HEENT: Atraumatic, EOMI, Mucous Memb Moist/[place] Neck: Supple Lungs: Clear to Auscultation, Normal Air Movement Heart: Regular Rate, No Murmurs Abdomen: Normal Bowel Sounds, Soft, No Tenderness Extremities: No Clubbing, No Cyanosis, No Edema Skin: No Rashes, No Breakdown Psych/Mental Status: Mental Status NL, Mood NL Results/Procedures Lab Laboratory Tests 04/02/23 05:24: White Blood Count 6.4, Red Blood Count 3.70L, Hemoglobin 12.0L, Hematocrit 35L, Mean Corpuscular Volume 95, Mean Corpuscular Hemoglobin 32, Mean Corpuscular Hemoglobin Concent 34, Red Cell Distribution Width 12.7, Platelet Count 150, Mean Platelet Volume 9.5, Sodium Level 135, Potassium Level 3.2L, Chloride Level 102, Carbon Dioxide Level 22, Anion Gap 11, Blood Urea Nitrogen 13, Creatinine 0.99, Estimat Glomerular Filtration Rate 74, BUN/Creatinine Ratio 13, Glucose Level 132H, Calcium Level 8.3L, Corrected Calcium 9.0, Total Bilirubin 1.0, Aspartate Amino Transf (AST/SGOT) 22, Alanine Aminotransferase (ALT/SGPT) 14, Alkaline Phosphatase 67, Total Protein 5.7L, Albumin 3.1L Assessment/Plan Assessment/Plan Admission Dx Recurrent falls Admission Status: Inpatient Order (span 2 midnights) Reason for Inpatient Admission: Significant delirium and confusion and immobile state (1) Recurrent falls Status: Acute Assessment & Plan: Patient admitted for weakness, recurrent falls. Imaging is negative for any acute injuries. Infectious workup negative. Plan: Continue work with PT/OT, appreciate recommendations - Social work consult for placement as unable to care for at home at this time. Pain medications as needed given that patient has likely sustained some injuries due to this. (2) Generalized weakness Status: Acute Assessment & Plan: PT/OT eval and treat (3) Dementia Status: Chronic Assessment & Plan: Per , at baseline. Initially significant confusion and delirium, doing better. No delirium overnight. - [facility] protocol Qualifiers: Qualified Codes: F03.B0 - Unspecified dementia, moderate, without behavioral disturbance, psychotic disturbance, mood disturbance, and anxiety (4) Hypokalemia Status: Acute Assessment & Plan: Mildly low potassium at 3.2 on 04/02, received oral KCl 40mEq today. - recheck tomorrow, redose if needed - encourage oral food intake (5) Left shoulder pain Status: Acute Qualifiers: Qualified Codes: M25.512 - Pain in left shoulder (6) Back pain Status: Acute Assessment & Plan: Low back pain since fall, imaging negative for acute fracture or injury. - Tylenol, oxycodone prn pain - PT/OT eval and treat Qualifiers: Qualified Codes: M54.50 - Low back pain, unspecified (7) Encounter for deep vein thrombosis prophylaxis Status: Acute Assessment & Plan: Enoxaparin JUAN JOSÉ TEJEDA MD Apr 02, 2023 08:30
[2023-04-02] MEDS: busPIRone 10 MG TABLET PO SCH ×2 (09:45→20:22)
[2023-04-02] MEDS: SENNOSIDES 8.6 MG TABLET PO SCH ×2 (09:45→20:23)
[2023-04-02] MEDS: DOCUSATE SODIUM 100 MG CAPSULE PO SCH ×2 (09:46→20:22)
[2023-04-02] MEDS: DONEPEZIL 10 MG TABLET PO SCH (09:46)
[2023-04-02] MEDS: MEMANTINE 5 MG TABLET PO SCH ×2 (09:46→20:22)
[2023-04-02] MEDS: amLODIPine 5 MG TABLET PO SCH (09:47)
[2023-04-02] MEDS: POTASSIUM CHLORIDE 10 MEQ TABLET PO SCH ×2 (09:48→17:28)
--- NOTE | 2023-04-02 09:54 | Occupational Therapy Eval ---
OT Evaluation-General/PLF Medical Diagnosis Admission Date Apr 01, 2023 at 10:02 Medical Diagnosis: falls, weakness Onset Date: Apr 01, 2023 Therapy Diagnosis Therapy Diagnosis: weakness, pain Precautions Precautions/Isolations: Fall Prevention, Standard Precautions Safety Interventions: Bed Exit Alarm (chair) Weight Bear Status Weight Bearing Restriction: Weight Bearing/Tolerated C/O pain to bilateral hips when transitioning to stand, once standing pain resolves Referral Referral Reason: Evaluation/Treatment Medical History Pertinent Medical History: Dementia Additional Medical History 87-year-old male with a past medical history of dementia who presented after a fall. He lives with his at home who states that he fell getting out of bed this morning and had difficulty pulling himself back up. He was thus brought into [place] ED via EMS where multiple CT scans were done all of which were negative for any injuries. She does note that he had a similar fall 2 weeks ago with negative imaging as well. Today after being discharged from [place] ED, she noted that patient was unable to walk. The ED physician here in [place] stated that patient had to be lifted out of the car. Patient is otherwise usually to able to walk without any assistance at baseline Current History c/o pain to hips and back during bed mobility, required Mod assist of 2 person to transition form supine to EOB sitting, Social History Home: Single Level Current Living Status: Spouse ADL-Prior Level of Function SCALE: Activities may be completed with or without assistive devices. 0-Tddsikaswm-wruxwis completes the activity by him/herself with no assistance from a helper. 5-Set-up or Clean-up Assistance-helper sets up or cleans up; patient completes activity. [place] assists only prior to or following the activity. 4-Supervision or Touching Assistance-helper provides verbal cues and/or touching/steadying and/or contact guard assistance as patient completes activity. Assistance may be provided throughout the activity or intermittently. 3-Partial/Moderate Assistance-helper does LESS THAN HALF the effort. [place] lifts, holds or supports trunk or limbs, but provides less than half the effort. 2-Substantial/Maximal Assistance-helper does MORE THAN HALF the effort. [place] lifts or holds trunk or limbs and provides more than half the effort. 2-Ewxlsyxse-jnympq does ALL the effort. Patient does none of the effort to complete the activity. Or, the assistance of 2 or more helpers is required for the patient to complete the activity. If activity was not attempted, code reason: 7-Patient Refused. 9-Not Applicable-not attempted and the patient did not perform the activity before the current illness, exacerbation or injury. 10-Not Attempted due to Environmental Limitations-(lack of equipment, weather restraints, etc.). 88-Not Attempted due to Medical Conditions or Safety Concerns. Self Care: Independent Functional Cognition: Needed Some Help DME/Equipment Comments has declined use of FWW in past when presented with option and recommendation Drive Self: No OT Current Status Subjective Agreeable to OT w/ daughter in room, slightly confused with events leading to hospital admission and current room. Pain Numeric Pain Scale: 7 Location: Lateral Location Body Site: Hip Pain Description: Stabbing, Sharp Mental Status/Objective Patient Orientation: Person Attachments: Sandoval Catheter Current Glasses/Contacts: Yes Hearing Aids: No Dentures/Partials: Yes Hand Dominance: Right Upper Extremity ROM BUE ROM WFLS Upper Extremity Coordination FAIR Upper Extremity Strength +3/5 ADL-Treatment ADL-Current Extensive verbal instruction for sit/stand and sandoval use, patient require OT to apply socks. Patient holds BUE at 90 for OT to insert into gown. Eating (QC): 5 Oral Hygiene (QC): 4 Shower/Bathe Self (QC): 7 Upper Body Dressing (QC): 4 Lower Body Dressing (QC): 2 On/Off Footwear (QC): 1 Toileting Hygiene (QC): 1 Education OT Patient Education: Correct positioning, Modified ADL techniques, Progress toward Goal/Update tx plan, Purpose of tx/functional activities, Safety issues, Transfer techniques Teaching Recipient: Patient, Family (daughter) Teaching Methods: Demonstration, Discussion Response to Teaching: Unable to Comprehend, Reinforcement Needed OT Residential Goals [employer] Goals Eating (QC): 5 Oral Hygiene (QC): 5 Toileting Hygiene (QC): 5 Shower/Bathe Self (QC): 5 Upper Body Dressing (QC): 5 Lower Body Dressing (QC): 5 On/Off Footwear (QC): 5 1=Demonstrate adherence to instructed precautions during ADL tasks. 2=Patient will verbalize/demonstrate understanding of assistive devices/modifications for ADL. 3=Patient will improve strength/tolerance for activity to enable patient to perform ADL's. OT Education/Plan Problem List/Assessment Assessment: Decreased Activ Tolerance, Decreased Safety Aware, Decreased UE Strength, Impaired Bed Mobility, Impaired Cognition, Impaired Coordination, Impaired Funct Balance, Impaired Self-Care Skills Discharge Recommendations Plan/Recommendations: Continue POC Therapy Discharge Recommendati: Post Acute OT Treatment Plan/Plan of Care Treatment,Training & Education: Yes Patient would benefit from OT for education, treatment and training to promote independence in ADL's, mobility, safety and/or upper extremity function for ADL's. Plan of Care: ADL Retraining, Caregiver Training, Cognitive Retraining, Funct ional Mobility, Group Exercise/Act as Ind, UE Funct Exercise/Act Treatment Duration: Apr 06, 2023 Frequency: 3 times per week (3-5 times per week) Estimated Hrs Per Day: .25 hour per day Agreement: Yes Rehab Potential: Guarded Up in recliner, all needs met, chair alarm set, family in room Time Start Time: 08:50 Stop Time: 09:06 DATE: Apr 02, 2023 Total Time Billed (hr/min): 16 Billed Treatment Time EVM 16 min ANDREZ COLLIER OT Apr 02, 2023 09:54
--- NOTE | 2023-04-02 11:02 | Physical Therapy Evaluation ---
PT Evaluation-General Medical Diagnosis Admission Date Apr 01, 2023 at 10:02 Medical Diagnosis: falls, weakness Onset Date: Apr 01, 2023 Therapy Diagnosis Therapy Diagnosis: Falls; weakness Precautions Precautions/Isolations: Fall Prevention, Standard Precautions Referral Physician: Kiara Mariano Reason for Referral: Evaluation/Treatment Medical History Pertinent Medical History: Dementia Current History Pt has had a progressive dementia with weakness and less activity over the past month. Pt admitted to ER in [place] after falling at home. He is not currently able to manage at home with his due to weakness and immobility. Social History Home: Single Level Current Living Status: Spouse Pt mildly confused during treatment. He does not want to participate but his helped to convince him to attempt mobility. Prior Prior Level of Function SCALE: Activities may be completed with or without assistive devices. 5-Teqlzcuhwj-wpooohm completes the activity by him/herself with no assistance from a helper. 5-Set-up or Clean-up Assistance-helper sets up or cleans up; patient completes activity. [place] assists only prior to or following the activity. 4-Supervision or Touching Assistance-helper provides verbal cues and/or touching/steadying and/or contact guard assistance as patient completes activity. Assistance may be provided throughout the activity or intermittently. 3-Partial/Moderate Assistance-helper does LESS THAN HALF the effort. [place] lifts, holds or supports trunk or limbs, but provides less than half the effort. 2-Substantial/Maximal Assistance-helper does MORE THAN HALF the effort. [place] lifts or holds trunk or limbs and provides more than half the effort. 4-Ljodiplrs-ikyztp does ALL the effort. Patient does none of the effort to complete the activity. Or, the assistance of 2 or more helpers is required for the patient to complete the activity. If activity was not attempted, code reason: 7-Patient Refused. 9-Not Applicable-not attempted and the patient did not perform the activity be fore the current illness, exacerbation or injury. 10-Not Attempted due to Environmental Limitations-(lack of equipment, weather restraints, etc.). 88-Not Attempted due to Medical Conditions or Safety Concerns. Bed Mobility: 4 Transfers (B,C,W/C): 4 Gait: 4 PT Evaluation-Current Objective Patient Orientation: Person, Confused Attachments: [place] Catheter ROM/Strength Strength Lower Extremities 3/5 quads, 2/5 hip flexion and extension Sensory Vision: Functional Hearing: Functional Hand Dominance: Right Transfers Roll Left to Right (QC): 2 Sit to Lying (QC): 2 Lying to Sitting/Side of Bed(Q: 2 Sit to Stand (QC): 2 Chair/Ueg-os-Wwcsf Xfer(QC): 2 Pt needs maximal assist for bed mobility and sit to stand. Gait Does the Patient Walk?: Yes Mode of Locomotion: Walk Anticipated Mode of Locomotion: Both Distance: 5ft Gait Assistive Device: FWW Comments/Gait Description Walked 5ft with FWW and constant cues for sequence. Moderate assist for lifting and ensuring patients knees and hips were extended. Pt frequently reported he wanted to sit down and that he couldn't walk. C/O pain in the hips and low back but unable to rate. Balance Sitting Static: Poor Sitting Dynamic: Poor Standing Static: Poor Standing Dynamic: Poor Assessment/Needs Pt is very weak throughout the lower extremities and abdominals. His pain limits mobility but he also has fear and pain in standing which are limiting factors. He is unsafe during standing activities. Rehab Potential: Fair PT Short Term Goals Short Term Goals Time Frame: Apr 04, 2023 Roll Left & Right: 3 Sit to lyin Lying to sitting on side of be: 3 Sit to stand: 3 Chair/nor-ae-xnvbg transfer: 3 Walk 10 feet: 3 PT Superintendent Institution Goals Fpc Goals PT Fpc Goals Time Frame: Apr 06, 2023 Roll Left & Right (QC): 4 Sit to Lying (QC): 4 Lying-Sitting on Side/Bed(QC): 4 Sit to Stand (QC): 4 Chair/Hnd-is-Pmqgz Xfer(QC): 4 Walk 10 feet (QC): 4 PT Plan Problem List Problem List: Activity Tolerance, Balance, Gait, Transfer, Bed Mobility Treatment/Plan Treatment Plan: Continue Plan of Care Treatment Duration: Apr 06, 2023 Frequency: 5 times per week Estimated Hrs Per Day: .25 hour per day Patient and/or Family Agrees t: Yes Time Time In: 1000 Time Out: 1025 DATE: Apr 02, 2023 Total Billed Treatment Time: 25 Total Billed Treatment visit, eval high complexity 25 min YOLANDA RUCKER PT Apr 02, 2023 11:02
[2023-04-02] MEDS ORDERED: TIZA-169 PO ×2 (11:06)
[2023-04-02] MEDS ORDERED: MEMA10TA57 PO ×2 (11:06)
[2023-04-02] MEDS ORDERED: DONE10TA41 PO ×2 (11:07)
[2023-04-02] MEDS ORDERED: HYDR-700 PO ×2 (11:08)
[2023-04-02] MEDS ORDERED: BUSP10TA95 PO ×2 (11:08)
[2023-04-02] MEDS ORDERED: LATA2.5D19 OU ×2 (11:09)
[2023-04-02] MEDS ORDERED: MELA10TA2 PO ×2 (11:10)
[2023-04-02] MEDS ORDERED: CYAN-41 PO ×2 (11:10)
[2023-04-02 11:35] VITALS: BP 143/82
--- NOTE | 2023-04-02 14:16 | Diagnostic Imaging Report ---
EXAMINATION: Chest 1 view HISTORY: Pneumonia. COMPARISON: 03/31/2023. FINDINGS: There is a left base airspace opacity. No pneumothorax. The heart size is at the upper limits of normal. No pleural effusion is seen. IMPRESSION: 1. Unchanged left base airspace opacity which may represent atelectasis or pneumonia. Dictated by: Dictated on workstation # [id number]
[2023-04-02 15:59] VITALS: BP_SYST 153; BP_SYST 163; BP_DIAS 82; BP_DIAS 87
[2023-04-02] MEDS: ENOXAPARIN 40 MG/0.4 ML SYRINGE SC SCH (17:28)
[2023-04-02 19:01] VITALS: BP 170/86
[2023-04-02] MEDS: MELATONIN 10 MG TABLET PO SCH (20:22)
[2023-04-02] MEDS: hydrALAZINE 25 MG TABLET PO PRN (20:28)
[2023-04-02] MEDS: HALOPERIDOL INJECTION 5 MG/ML VIAL IM PRN (22:12)
[2023-04-02 23:06] VITALS: BP 163/86
[2023-04-03] VITALS (7 sets, daily range): BP systolic 141–178; BP diastolic 65–90
[2023-04-03] MEDS: IBUPROFEN 600 MG TABLET PO SCH ×4 (05:21→23:37)
[2023-04-03] MEDS: ACETAMINOPHEN 500 MG TABLET PO SCH ×3 (05:21→22:05)
[2023-04-03 05:37] LABS: HEMATOCRIT 34 % (40-54); HEMOGLOBIN 11.6 g/dL (13.3-17.7); MEAN CORPUSCULAR HEMOGLOBIN 33 pg (25-34); MEAN CORPUSCULAR HGB CONC 35 g/dL (32-36); MEAN CORPUSCULAR VOLUME 96 fL (80-99); MEAN PLATELET VOLUME 9.3 fL (9.0-12.2); PLATELET COUNT 145 10^3/uL (130-400); WHITE BLOOD COUNT 5.8 10^3/uL (4.3-11.0)
[2023-04-03 05:49] LABS: ALBUMIN 2.9 GM/DL (3.2-4.5)
[2023-04-03 05:50] LABS: POTASSIUM 3.5 MMOL/L (3.6-5.0)
[2023-04-03 05:51] LABS: CALCIUM 7.9 MG/DL (8.5-10.1)
[2023-04-03 05:52] LABS: TOTAL PROTEIN 5.5 GM/DL (6.4-8.2)
[2023-04-03 05:54] LABS: BILIRUBIN,TOTAL 0.5 MG/DL (0.1-1.0)
[2023-04-03 05:56] LABS: CREATININE SERUM 0.87 MG/DL (0.60-1.30)
--- NOTE | 2023-04-03 07:59 | Progress Note ---
Subjective Subjective/Events-last exam Patient up and working with PT this morning, reports doing well. Daughter at bedside, no concerns. Per nursing, very confused and agitated over night, difficult to redirect. Minimal improvement with medications. Currently has sitter in place. Objective Exam Last Set of Vital Signs Vital Signs Date Time Temp Pulse Resp B/P (MAP) Pulse Ox O2 Delivery O2 Flow Rate FiO2 04/03/23 07:02 36.5 61 16 178/85 (116) 92 Room Air Capillary Refill : I&O Intake and Output0 04/03/23 00:00 Intake Total 1060 ml Output Total 1125 ml Balance -65 ml Intake Oral 1060 ml Output Urine Total 1125 ml # Bowel Movements 1 General: Alert, Oriented X3, Cooperative, No Acute Distress HEENT: Atraumatic, PERRLA, EOMI Lungs: Clear to Auscultation, Normal Air Movement Heart: Regular Rate, No Murmurs Abdomen: Normal Bowel Sounds, Soft, No Tenderness Extremities: No Edema Skin: No Rashes Psych/Mental Status: Mood NL Results/Procedures Lab Laboratory Tests 04/03/23 05:30: White Blood Count 5.8, Red Blood Count 3.50L, Hemoglobin 11.6L, Hematocrit 34L, Mean Corpuscular Volume 96, Mean Corpuscular Hemoglobin 33, Mean Corpuscular Hemoglobin Concent 35, Red Cell Distribution Width 12.9, Platelet Count 145, Mean Platelet Volume 9.3, Sodium Level 135, Potassium Level 3.5L, Chloride Level 105, Carbon Dioxide Level 23, Anion Gap 7, Blood Urea Nitrogen 10, Creatinine 0.87, Estimat Glomerular Filtration Rate 84, BUN/Creatinine Ratio 11, Glucose Level 114H, Calcium Level 7.9L, Corrected Calcium 8.8, Total Bilirubin 0.5, Aspartate Amino Transf (AST/SGOT) 17, Alanine Aminotransferase (ALT/SGPT) 13, Alkaline Phosphatase 70, Total Protein 5.5L, Albumin 2.9L Assessment/Plan Assessment/Plan Admission Dx Dementia, delirium, falls Admission Status: Observation (1) Recurrent falls Status: Acute Assessment & Plan: Patient admitted for weakness, recurrent falls. Imaging is negative for any acute injuries. Infectious workup negative. Plan: Continue work with PT/OT, appreciate recommendations - Social work consult for placement as unable to care for at home at this time. Currently looking at [facility] in [facility] Pain medications as needed given that patient has likely sustained some injuries due to this. (2) Generalized weakness Status: Acute Assessment & Plan: PT/OT eval and treat (3) Dementia Status: Chronic Assessment & Plan: Per , at baseline. Initially significant confusion and delirium, doing better. Worsened delirium overnight. - [facility] protocol - PRN medications for agitation available - Sitter in place Qualifiers: Qualified Codes: F03.B0 - Unspecified dementia, moderate, without behavioral disturbance, psychotic disturbance, mood disturbance, and anxiety (4) Hypokalemia Status: Acute Assessment & Plan: Mildly low potassium at 3.2 on 04/02, received oral KCl 40mEq with improvement to 3.5. - recheck tomorrow, redose if needed - encourage oral food intake (5) Left shoulder pain Status: Acute Qualifiers: Qualified Codes: M25.512 - Pain in left shoulder (6) Back pain Status: Acute Assessment & Plan: Low back pain since fall, imaging negative for acute fracture or injury. - Tylenol, oxycodone prn pain - PT/OT eval and treat Qualifiers: Qualified Codes: M54.50 - Low back pain, unspecified (7) Encounter for deep vein thrombosis prophylaxis Status: Acute Assessment & Plan: Enoxaparin JUAN JOSÉ TEJEDA MD Apr 03, 2023 07:59
[2023-04-03] MEDS: MEMANTINE 5 MG TABLET PO SCH ×2 (08:10→19:40)
[2023-04-03] MEDS: SENNOSIDES 8.6 MG TABLET PO SCH ×2 (08:11→19:11)
[2023-04-03] MEDS: busPIRone 10 MG TABLET PO SCH ×2 (08:11→19:40)
[2023-04-03] MEDS: POTASSIUM CHLORIDE 10 MEQ TABLET PO SCH ×2 (08:11→17:27)
[2023-04-03] MEDS: DONEPEZIL 10 MG TABLET PO SCH (08:11)
[2023-04-03] MEDS: DOCUSATE SODIUM 100 MG CAPSULE PO SCH ×2 (08:11→19:11)
[2023-04-03] MEDS: amLODIPine 5 MG TABLET PO SCH (08:11)
[2023-04-03] MEDS ORDERED: PANTOPRAZOLE INJECTION 40 MG VIAL IV SCH (09:00)
--- NOTE | 2023-04-03 15:06 | Physical Therapy Daily Note ---
PT Daily Note-Current Subjective Patient sitting in chair upon PT arrival, agreeable to treatment. Patient rates pain at 0/10 currently. Pain Section J - Health Conditions 1. Rarely or not at all 2. Occasionally 3. Frequently 4. Almost constantly 8. Unable to answer Pain Effect on Sleep: 1 Pain Interference with Therapy: 1 Pain Interference w/Day-to-Day: 1 Transfers SCALE: Activities may be completed with or without assistive devices. 9-Vyagwgreah-nuatlnc completes the activity by him/herself with no assistance from a helper. 5-Set-up or Clean-up Assistance-helper sets up or cleans up; patient completes a ctivity. [place] assists only prior to or following the activity. 4-Supervision or Touching Assistance-helper provides verbal cues and/or touching/steadying and/or contact guard assistance as patient completes activity. Assistance may be provided throughout the activity or intermittently. 3-Partial/Moderate Assistance-helper does LESS THAN HALF the effort. [place] lifts, holds or supports trunk or limbs, but provides less than half the effort. 2-Substantial/Maximal Assistance-helper does MORE THAN HALF the effort. [place] lifts or holds trunk or limbs and provides more than half the effort. 9-Idputmdot-emoetx does ALL the effort. Patient does none of the effort to complete the activity. Or, the assistance of 2 or more helpers is required for the patient to complete the activity. If activity was not attempted, code reason: 7-Patient Refused. 9-Not Applicable-not attempted and the patient did not perform the activity before the current illness, exacerbation or injury. 10-Not Attempted due to Environmental Limitations-(lack of equipment, weather restraints, etc.). 88-Not Attempted due to Medical Conditions or Safety Concerns. Sit to Stand (QC): 4 Chair/Gmg-cv-Srhbu Xfer(QC): 4 Gait Training Does the Patient Walk?: Yes Distance: 15 feet Walk 10 feet (QC): 3 Gait Assistive Device: FWW Assessment Current Status: Fair Progress Patient tolerated treatment well. Patient performs all transfers with Min A. Patient ambulates 15 feet with FWW, with mod A and verbal cues for posture, safety, progression. Patient in chair post treatment with all needs met, nursing notified, call light in hand and chair alarm activated. PT Short Term Goals Short Term Goals Time Frame: Apr 04, 2023 Roll Left & Right: 3 Sit to lyin Lying to sitting on side of be: 3 Sit to stand: 3 Chair/nqu-bq-rytzp transfer: 3 Walk 10 feet: 3 PT Registered Diet Technician Goals Custodial Goals PT Registered Diet Technician Goals Time Frame: Apr 06, 2023 Roll Left & Right (QC): 4 Sit to Lying (QC): 4 Lying-Sitting on Side/Bed(QC): 4 Sit to Stand (QC): 4 Chair/Fpg-bw-Hixsr Xfer(QC): 4 Toilet Transfer (QC): 4 Car Transfer (QC): 4 Does the Patient Walk: Yes Walk 10 feet (QC): 4 Walk 50ft with 2 Turns (QC): 4 Walk 150 ft (QC): 4 Walking 10ft on Uneven Surface: 9 1 Step (curb) (QC): 9 4 Steps (QC): 9 12 Steps (QC): 9 Picking up an Object (QC): 9 Does the Pt use WC or Scooter?: No Wheel 50 feet with 2 turns (QC: 9 Wheel 150 feet: 9 PT Plan Treatment/Plan Treatment Plan: Continue Plan of Care Treatment Duration: Apr 06, 2023 Frequency: 5 times per week Estimated Hrs Per Day: .25 hour per day Patient and/or Family Agrees t: Yes Safety Risks/Education Patient Education: Gait Training, Transfer Techniques Teaching Recipient: Patient, Family Teaching Methods: Demonstration, Discussion Response to Teaching: Reinforcement Needed Time Time In: 915 Time Out: 930 DATE: Apr 03, 2023 Total Billed Treatment Time: 15 Total Billed Treatment Visit, GT MARIA DEL CARMEN PINA PT Apr 03, 2023 15:06
[2023-04-03] MEDS: HALOPERIDOL INJECTION 5 MG/ML VIAL IM PRN (18:21)
[2023-04-03] MEDS: ENOXAPARIN 40 MG/0.4 ML SYRINGE SC SCH (18:22)
[2023-04-03] MEDS: MELATONIN 10 MG TABLET PO SCH (19:38)
[2023-04-03] MEDS: hydrALAZINE 25 MG TABLET PO PRN ×2 (19:38→23:37)
[2023-04-04] MEDS: diphenhydrAMINE 25 MG TABLET PO PRN (02:13)
[2023-04-04] MEDS: oxyCODONE IMMEDIATE RELEASE 5 MG TABLET PO PRN (02:13)
[2023-04-04 04:00] VITALS: BP 171/92
[2023-04-04 05:30] VITALS: BP 166/66
[2023-04-04] MEDS: hydrALAZINE 25 MG TABLET PO PRN (05:34)
[2023-04-04] MEDS: ACETAMINOPHEN 500 MG TABLET PO SCH (05:34)
[2023-04-04] MEDS: IBUPROFEN 600 MG TABLET PO SCH ×2 (05:34→11:30)
[2023-04-04 05:49] LABS: HEMATOCRIT 36 % (40-54); HEMOGLOBIN 12.7 g/dL (13.3-17.7); MEAN CORPUSCULAR HEMOGLOBIN 33 pg (25-34); MEAN CORPUSCULAR HGB CONC 35 g/dL (32-36); MEAN CORPUSCULAR VOLUME 94 fL (80-99); MEAN PLATELET VOLUME 9.4 fL (9.0-12.2); PLATELET COUNT 178 10^3/uL (130-400); WHITE BLOOD COUNT 5.5 10^3/uL (4.3-11.0)
[2023-04-04 06:01] LABS: ALBUMIN 3.3 GM/DL (3.2-4.5); POTASSIUM 3.5 MMOL/L (3.6-5.0)
[2023-04-04 06:03] LABS: CALCIUM 8.4 MG/DL (8.5-10.1)
[2023-04-04 06:04] LABS: TOTAL PROTEIN 6.2 GM/DL (6.4-8.2)
[2023-04-04 06:07] LABS: CREATININE SERUM 0.81 MG/DL (0.60-1.30)
[2023-04-04 07:12] VITALS: BP 158/89
[2023-04-04] MEDS: DOCUSATE SODIUM 100 MG CAPSULE PO SCH (08:43)
[2023-04-04] MEDS: DONEPEZIL 10 MG TABLET PO SCH (08:43)
[2023-04-04] MEDS: SENNOSIDES 8.6 MG TABLET PO SCH (08:43)
[2023-04-04] MEDS: amLODIPine 5 MG TABLET PO SCH (08:43)
[2023-04-04] MEDS: MEMANTINE 5 MG TABLET PO SCH (08:43)
[2023-04-04] MEDS: POTASSIUM CHLORIDE 10 MEQ TABLET PO SCH (08:43)
[2023-04-04] MEDS: busPIRone 10 MG TABLET PO SCH (08:43)
[2023-04-04] MEDS ORDERED: AMLO-250 PO ×2 (09:01)
--- NOTE | 2023-04-04 09:03 | Discharge Summary ---
Discharge Summary Reconcile Patient Problems Problems Reviewed?: Yes Hospital Course Hospital Course Date of Admission: Apr 01, 2023 at 10:02 Admission Diagnosis : Family Physician/Provider: Richardson Guerra MD Date of Discharge: 04/04/23 Discharge Diagnosis: Recurrent falls, generalized weakness, dementia Hospital Course: Zay Tan is a pleasant 87-year-old male with a past medical history of dementia who was admitted for weakness, inability to walk without assistance and recurrent falls at home. He lives at home with his , who was unable to get him up after a fall. Initial workup by [facility] included blood work multiple CT scans were done all of which were negative for any injuries or infection. PT/OT evaluation showed need for significant assistance. During admission, patient with moderate confusion and intermittent delirium overnight, requiring need for sitter. He remained clinically stable and was discharged to [facility] for rehabilitation. Labs and Pending Lab Test: Laboratory Tests 04/04/23 05:37: White Blood Count 5.5, Red Blood Count 3.86L, Hemoglobin 12.7L, Hematocrit 36L, Mean Corpuscular Volume 94, Mean Corpuscular Hemoglobin 33, Mean Corpuscular Hemoglobin Concent 35, Red Cell Distribution Width 12.7, Platelet Count 178, Mean Platelet Volume 9.4, Sodium Level 133L, Potassium Level 3.5L, Chloride Level 102, Carbon Dioxide Level 21, Anion Gap 10, Blood Urea Nitrogen 9, Creatinine 0.81, Estimat Glomerular Filtration Rate 85, BUN/Creatinine Ratio 11, Glucose Level 104, Calcium Level 8.4L, Corrected Calcium 9.0, Total Bilirubin 1.0, Aspartate Amino Transf (AST/SGOT) 22, Alanine Aminotransferase (ALT/SGPT) 15, Alkaline Phosphatase 81, Total Protein 6.2L, Albumin 3.3 Home Meds Active Amlodipine Besylate 5 Mg Tablet 10 Mg PO DAILY 30 Days Reported Melatonin 10 Mg Tablet 10 Mg PO HS Vitamin B-12 (Cyanocobalamin (Vitamin B-12)) 1,000 Mcg Tablet 1,000 Mcg PO DAILY Xalatan (Latanoprost) 0.005 % Drops 1 Drop OU HS Hydroxyzine HCl 25 Mg Tablet 25 Mg PO TID PRN LAST FILLED 03-29-2022 Buspirone HCl 10 Mg Tablet 10 Mg PO BID Donepezil HCl 10 Mg Tablet 10 Mg PO DAILY Tizanidine HCl 2 Mg Tablet 2 Mg PO HS Memantine HCl 10 Mg Tablet 10 Mg PO BID LAST FILLED 11-17-2022 #180/90 DAY SUPPLY Instructions to Patient/Family Assessment/Instructions PT/OT eval and treat Follow up with PCP within 2 weeks of discharge Return for fevers, worsening weakness, shortness of breath. Follow Up Appt.: 2 weeks with PCP Skilled NF Admit to: [facility] ([facility]) I certify that [facility] services are required to be given on an inpatient basis because of the above named patient's need for retirement care on a continuing basis for the conditions(s) for which he/she was receiving inpatient hospital services prior to his/her transfer to the SNF. Oxygen Delivery Method: Room Air Discharge Diet: No Restrictions Daily Activity as Tolerated: Yes Resuscitation Status: Do Not Resuscitate Mayte Salazar Apr 04, 2023 09:02 Discharge Physical Exam General: Alert, Oriented X3, No Acute Distress HEENT: Atraumatic, EOMI, Mucous Memb Moist/[place] Lungs: Clear to Auscultation, Normal Air Movement Heart: Regular Rate, No Murmurs Abdomen: Normal Bowel Sounds, Soft, No Tenderness Extremities: No Clubbing, No Edema, Normal Pulses Skin: No Rashes, No Breakdown Neuro: Normal Tone Psych/Mental Status: Mental Status NL, Mood NL MAYTE SALAZAR MD Apr 04, 2023 09:03
--- NOTE | 2023-04-04 09:05 | Discharge Inst-Skilled Nursing ---
Discharge Inst-Skilled NF Reconcile Patient Problems Problems Reviewed?: Yes Patient Instructions Patient Problems: Generalized weakness with recurrent falls, Dementia with delirium, inability to care for self at home. Goal: Increase strength, balance, endurance. Decrease fall risk. Consult/Follow Up/Orders Follow Up Appt.: With PCP within 2 weeks of discharge Skilled NF Admit to: [facility] Certification (SNF) I certify that SNF services are required to be given on an inpatient basis because of the above named patient's need for senior living care on a continuing basis for the conditions(s) for which he/she was receiving inpatient hospital services prior to his/her transfer to the SNF. Care Home Facility Order: Nursing Services, Supervisor Liquid Yeast-Evaluate & Treat, Physical Therapy-Evaluate & Treat Oxygen Delivery Method: Room Air Discharge Diet: No Restrictions Daily Activity as Tolerated: Yes Resuscitation Status: Do Not Resuscitate New & Resume Previous Orders Juan José Salazar Apr 04, 2023 09:03 JUAN JOSÉ SALAZAR MD Apr 04, 2023 09:05
[2023-04-04 11:31] VITALS: BP 152/75
[2023-04-05] MEDS ORDERED: amLODIPine 10 MG TABLET PO SCH (09:00)
== END 2023-04-04 12:25 | DRG 884 ==
LOC: EDUNIT# 14:29 → ER 14:32 → 4TH 17:31 → OBSVTOIN 04-01 10:02 → 4TH 04-02 19:03
PROVIDERS: ADMIT Internal Medicine; ATTEND Family Medicine
DX: F03.90 Unspecified dementia, unspecified severity, without behavioral disturbance, psychotic disturbance, mood disturbance, and anxiety (principal); F05 Delirium due to known physiological condition; E87.1 Hypo-osmolality and hyponatremia; R53.1 Weakness; Z91.81 History of falling; H54.7 Unspecified visual loss; E87.6 Hypokalemia; M25.512 Pain in left shoulder; Z66 Do not resuscitate; R33.9 Retention of urine, unspecified; I10 Essential (primary) hypertension; M54.9 Dorsalgia, unspecified; W19.XXXA Unspecified fall, initial encounter; Y92.009 Unspecified place in unspecified non-institutional (private) residence as the place of occurrence of the external cause
CPT/HCPCS: 36415; 71045; 80053; 81000; 83735; 83880; 84484; 85007; 85027; 86141; 87636; 93005; 93041; 96374; G0378